=== PATIENT | female | born 1970 | race Caucasian/White ===

== ENCOUNTER → 2016-07-09 17:29 | Outpatient (CLI) | payer BC | END | disposition home or self-care (01) | LOC: D.CT 15:30 | DX: R10.9 Unspecified abdominal pain (principal) ==

== ENCOUNTER → 2016-08-08 07:31 | Outpatient (CLI) | payer BC ==
[2016-08-08 08:20] LABS: BASOPHILS 0.5 % (0.0-2.0); EOSINOPHILS 1.8 % (0-7); HEMOGLOBIN 14.1 g/dL (12-16); IMMATURE GRANULOCYTES 0.3 % (0-5); LYMPHOCYTES 33.4 % (15-50); MCH 30.1 pg (26.0-34.0); MCHC 32.8 g/dL (31.0-37.0); MCV 91.7 fL (80.0-100.0); MEAN PLATELET VOLUME 10.2 fL (7.4-10.4); MONOCYTES 7.2 % (2-11); NEUTROPHILS 56.8 % (40-80); PLATELET COUNT 190 10x3/uL (130-400); RBC 4.69 10x6/uL (4.00-5.40); RDW 12.9 % (11.5-14.5); WBC 7.8 10x3/uL (4.8-10.8)
[2016-08-08 08:42] LABS: INR 1.02 (0.85-1.17); PROTIME 13.3 SECONDS (11.6-15.0)
[2016-08-08 08:43] LABS: APTT 32.4 SECONDS (22.8-39.4)
[2016-08-08 08:51] LABS: % SATURATION 19 % (15-55); IRON 65 ug/dl (35-150); TOTAL IRON BIND CAPACITY 340 ug/dl (260-445); UNSAT IRON BIND CAPACITY 275 ug/dl (150-375)
[2016-08-08 09:05] LABS: ALBUMIN 3.6 g/dL (3.4-5.0); ANION GAP 13.1 mmol/L (8-16); BILIRUBIN - DIRECT 0.06 mg/dL (0.00-0.30); BILIRUBIN - INDIRECT 0.3 mg/dL (0.00-1.00); BILIRUBIN - TOTAL 0.36 mg/dL (0.2-1.3); CALCIUM 8.9 mg/dL (8.5-10.1); CARBON DIOXIDE 27.9 mmol/L (21.0-32.0); CHOL - HDL RATIO 5.2 ratio (2.3-4.1); CREATININE - SERUM 0.9 mg/dL (0.6-1.3); LDL-HDL RATIO 3.7 ratio (1.5-3.5); PROTEIN - SERUM 8.1 g/dL (6.4-8.2)
[2016-08-09 11:10] LABS: ALPHA FETOPROTEIN -(TUMOR MRK) 2.7 ng/mL (0.0-8.3)
[2016-08-09 20:07] LABS: ANA REFLEX - DIRECT Negative (Negative)
[2016-08-11 16:12] LABS: MITOCHONDRIAL ANTIBODY 6.5 Units (0.0-20.0); SMOOTH MUSCLE ABS (ACTIN) 10 Units (0-19)
== END | disposition home or self-care (01) ==
LOC: D.LAB 08-05 10:15
PROVIDERS: Internal Medicine Gastroenterology
DX: R74.8 Abnormal levels of other serum enzymes (principal)